=== PATIENT | female | born 1945 | race Caucasian/White ===

== ENCOUNTER 2023-02-07 12:29 | Observation (INO) | payer MEDICARE, SELFPAY ==
[2023-02-07] VITALS (12 sets, daily range): BP systolic 101–150; BP diastolic 54–88; PULSE 69–84; RESP 16–20; TEMP 36.6–36.9; O2SAT 89–99; BMI 29.2; BMI 30.2
--- NOTE | 2023-02-07 12:24 | ECG_ITS ---
APPROVED REPORT Exam: Resting ECG HR:85 bpm ECG Measurements Heart Rate 85 AXES NH 132 P 38 QRSd 88 QRS 20 QT 366 T 5 QTc 408 Conclusion SINUS RHYTHM NONSPECIFIC T-WAVE ABNORMALITY BORDERLINE ECG UNCONFIRMED REPORT Electronically signed by : Sin Gonsalez MD 02/07/2023 21:33:33
--- NOTE | 2023-02-07 12:41 | HMH.EDGIBL ---
Discharge Plan Disposition Patient Disposition: Admitted Condition: Fair Clinical Impressions Clinical Impression: GI bleed Discharge ED Provider: Kris Torres GI Bleed HPI General Chief complaint: GI Bleed Stated complaint: WEAKNESS Time Seen by Provider: 02/07/23 12:41 Mode of Arrival: Ambulatory Source of Information: Patient Limitations: No Limitations Description of Symptoms (Recalled from ER Triage Doc. by RN): 78 yo F presents to ED with c/o weakness, blood in stool, lower abdominal pain. symptoms ongoing since 01/31/23. pt states that approx 1 month ago her pcp prescribed her meloxicam, pt had been taking medication. pt states that monday she noticed blood in her stool, and abdominal cramping. pt stop taking the meloxicam when the bleeding started. History of Present Illness HPI Narrative: The patient reports rectal bleeding for the past 6 days. The patient reports that this started after she took diclofenac. Patient reports that it was initially bright red blood per rectum and subsequently dark tarry stool MD complaint: blood streaked stool and other (Black tarry stool) Onset (ago): day(s) (7) Consistency: constant Severity: moderate Relieving factors: none Exacerbating factors: none Associated symptoms: abdominal pain Related Data Home Medications Medication Instructions Recorded Confirmed acetaminophen 300 mg-codeine 30 mg 1 tab PO BIDP PRN Pain 02/07/23 02/07/23 tablet citalopram 20 mg tablet 10 mg PO DAILY Depression 02/07/23 02/07/23 hydrochlorothiazide 25 mg tablet 25 mg PO DAILY BLOOD PRESSURE/FLUID 02/07/23 02/07/23 Allergies Allergy/AdvReac Type Severity Reaction Status Date / Time ibuprofen AdvReac Verified 02/07/23 12:35 meloxicam AdvReac Verified 02/07/23 12:35 [facility] Disclaimer: The information contained in this section may have been updated after the patient was seen, as this information can be updated by other users. Medical History Anxiety Arthritis Surgical History Hx of section Social History Smoking Status: Current every day smoker alcohol intake: never substance use type: denies use current occupational status: employed Travel in the last 8 weeks: None ROS Obtained: Yes Systems reviewed as appropriate & no additional complaints except as documented Gastrointestinal Gastrointestingal: Reports abdominal pain, hematochezia and melena Physical Exam General General appearance: alert and in no apparent distress Eye Eye exam: Present normal appearance ENT ENT exam: Present normal external ear exam Respiratory Respiratory exam: Present normal lung sounds bilaterally Cardiovascular Cardiovascular exam: Present regular rate Abdominal Exam Abdominal exam: Present soft; Absent distention or tenderness Extremities Exam Extremities exam: Present normal inspection Neurological Exam Neurological exam: Present alert and oriented X3 Psychiatric Psychiatric exam: Present normal affect Medical Decision Making Mateo Inquiry Pt receiving controlled substance: No Vital Signs: 02/07/23 12:29 02/07/23 12:43 02/07/23 13:00 Temperature 97.9 F Temperature Source Oral Pulse Rate 84 75 Pulse Rate [Left] 82 Respiratory Rate 18 Blood Pressure 150/88 H 130/73 Blood Pressure [Right Arm] 128/80 Blood Pressure Mean 97 105 Blood Pressure Mean [Right Arm] 96 02 Sat by Pulse Oximetry 98 98 97 02/07/23 13:30 02/07/23 14:00 Temperature 98.0 F Temperature Source Pulse Rate 76 69 Pulse Rate [Left] Respiratory Rate 18 16 Blood Pressure 142/81 H 140/80 Blood Pressure [Right Arm] Blood Pressure Mean 101 Blood Pressure Mean [Right Arm] 02 Sat by Pulse Oximetry 95 Lab Data Lab results reviewed: Yes I reviewed the patient's lab results. Lab Results 02/07/23 12:35: Deidre
[2023-02-07 12:43] LABS: Occult Blood,Stool Positive (Negative)
[2023-02-07 12:51] LABS: Chloride 101 mmol/L (98-107); Potassium 3.9 mmoL/L (3.5-5.1); Sodium 138 mmol/L (136-145)
[2023-02-07 12:53] LABS: Blood Urea Nitrogen 32 mg/dl (7-17); Creatinine Clearance Estimated 54 mL/min (50-200); Estimated Glomerular Filt Rate 53 ml/min (>60); GFR (African American) 65 ML/MIN (>60)
[2023-02-07 12:54] LABS: Alanine Aminotransferase 40 U/L (12-78); Albumin Level 4.4 g/dl (3.5-5.0); Albumin/Globulin Ratio 1.4 (1.1-1.8); Alkaline Phosphatase 108 U/L (38-126); Anion Gap 18.9 mEq/L (5-15); Aspartate Amino Transferase 40 U/L (14-36); Bilirubin,Total 0.5 mg/dl (0.2-1.3); Calcium 9.4 mg/dl (8.4-10.2); Carbon Dioxide 22 mmol/L (22.0-30.0); Globulin 3.1 g/dL (1.3-3.2); Glucose 139 mg/dl (74-100); Total Protein,Serum 7.5 g/dl (6.3-8.2)
[2023-02-07 12:54] LABS: Coronavirus 19, PCR Not Detected (NotDetected); Influenza A, PCR Not Detected (NotDetected); Influenza B, PCR Not Detected (NotDetected)
[2023-02-07 12:57] LABS: Basophils # 0.1 K/mm3 (0-0.2); Basophils % 0.6 % (0.1-2.0); Eosinophils # 0.1 K/mm3 (0.0-0.4); Eosinophils % 0.9 % (0.1-12.0); Hematocrit 35.1 % (37.0-47.0); Hemoglobin 11.4 g/dL (12.2-16.2); Lymphocytes # 1.9 K/mm3 (0.7-4.5); Lymphocytes % 16.9 % (10-50); Mean Corpuscular HGB Conc 32.4 g/dL (31.8-35.4); Mean Corpuscular Hemoglobin 31.6 pg (27.0-31.2); Mean Corpuscular Volume 97.5 fl (81-99); Mean Platelet Volume 8.3 fl (7.4-10.4); Monocytes # 0.7 K/mm3 (0.1-1.0); Monocytes % 6.2 % (1.7-9.3); Neutrophils # 8.5 K/mm3 (1.8-7.8); Neutrophils % 75.4 % (37.0-80.0); Platelet Count 307 K/mm3 (142-424); Red Cell Distribution Width 13.2 % (11.5-17.5); White Blood Count 11.2 K/mm3 (4.8-10.8)
--- NOTE | 2023-02-07 13:34 | PC.NURSE ---
DR DIAZ PAGED AT THIS TIME
--- NOTE | 2023-02-07 13:40 | PC.NURSE ---
DR MARROQUIN SPEAKING WITH DR DIAZ
--- NOTE | 2023-02-07 13:44 | PC.NURSE ---
DR MARROQUIN SPEAKING WITH DR HOUSTON
--- NOTE | 2023-02-07 13:49 | PC.NURSE ---
DR MARROQUIN AT BEDSIDE TO UPDATE PT
--- NOTE | 2023-02-07 14:06 | PC.NURSE ---
report called to nataliia on second floor
--- NOTE | 2023-02-07 14:13 | EXP.ANES.CKL ---
[facility] Disclaimer: The information contained in this section may have been updated after the patient was seen, as this information can be updated by other users. Social History Smoking Status: Current every day smoker alcohol intake: never substance use type: denies use current occupational status: employed Travel in the last 8 weeks: None [facility] Anesthesia Checklist Patient Identification Patient Identification: Arm Band and Verbal (Name & ) Structural Data Admitted From: Emergency Dept Planned Operative Procedure/s: EGD Consent for Planned Operative Procedure(s) Verified: Yes NPO Status Verified Time NPO: 08:30 (Coffee) Chart Verification Results Verified: CBC Airway Assessment C-Spine Mobility Assessed: Yes TMJ Mobility Assessed: Yes Dentition: Good Dentition Neurological Assessment Level of Consciousness: Awake Hx Seizures: No Numbness or tingling in extremities: No Anesthesia Plan Anesthesia Risk discussed: Yes Anesthesia Plan: Verified ASA Class: II Anesthesia Type: MAC
--- NOTE | 2023-02-07 14:20 | EXP.SURG.CON ---
History of Present Illness *Admission Date: 02/07/23 *Reason for visit:: Gastrointestinal hemorrhage *History of present illness: This is a 78-year-old female who reports a 1 week history of dark stool and occasional bright red blood per rectum after starting meloxicam. Please see HPI from emergency department evaluation below. Forwarded from emergency department evaluation: Chief complaint: GI Bleed Stated complaint: WEAKNESS Time Seen by Provider: 02/07/23 12:41 Mode of Arrival: Ambulatory Source of Information: Patient Limitations: No Limitations Description of Symptoms (Recalled from ER Triage Doc. by RN): 78 yo F presents to ED with c/o weakness, blood in stool, lower abdominal pain. symptoms ongoing since 01/31/23. pt states that approx 1 month ago her pcp prescribed her meloxicam, pt had been taking medication. pt states that monday she noticed blood in her stool, and abdominal cramping. pt stop taking the meloxicam when the bleeding started. [facility] Disclaimer: The information contained in this section may have been updated after the patient was seen, as this information can be updated by other users. Social History (Updated 02/07/23 @ 14:14 by Vidya Parrish CRNA) Smoking Status: Current every day smoker alcohol intake: never substance use type: denies use current occupational status: employed Travel in the last 8 weeks: None Meds Home Medications and Allergies New Prescriptions to Start Prescriptions: Allergies Allergy/AdvReac Type Severity Reaction Status Date / Time ibuprofen AdvReac Verified 02/07/23 12:35 meloxicam AdvReac Verified 02/07/23 12:35 Exam (Inpt) Vital signs and Labs for Last 24 Hours: Temp Pulse Resp BP Pulse Ox 97.9 F 76 18 142/81 H 95 02/07/23 12:29 02/07/23 13:30 02/07/23 13:30 02/07/23 13:30 02/07/23 13:30 Laboratory Results - last 24 hr 02/07/23 12:35: Stool Occult Blood Positive A 02/07/23 12:35: WBC 11.2 H, RBC 3.60 L, Hgb 11.4 L, Hct 35.1 L, MCV 97.5, MCH 31.6 H, MCHC 32.4, RDW 13.2, Plt Count 307, MPV 8.3, Neut % (Auto) 75.4, Lymph % (Auto) 16.9, [place] % (Auto) 6.2, Eos % (Auto) 0.9, Baso % (Auto) 0.6, Neut # (Auto) 8.5 H, Lymph # (Auto) 1.9, [place] # (Auto) 0.7, Eos # (Auto) 0.1, Baso # (Auto) 0.1 02/07/23 12:35: Sodium 138, Potassium 3.9, Chloride 101, Carbon Dioxide 22, Anion Gap 18.9 H, BUN 32 H, Creatinine 1.00, Estimated Creat Clear 54, Estimated GFR 53 L, Est GFR ( Amer) 65, Glucose 139 H, Calcium 9.4, Total Bilirubin 0.5, AST 40 H, ALT 40, Alkaline Phosphatase 108, Total Protein 7.5, Albumin 4.4, Globulin 3.1, Albumin/Globulin Ratio 1.4 02/07/23 12:51: SARS-CoV-2 (PCR) Not detected, Influenza A Untype (PCR) Not detected, Influenza Type B (PCR) Not detected I & O for Labs for Last 24 Hours: Intake & Output 02/05/23 02/06/23 02/07/23 02/08/23 11:59 11:59 11:59 11:59 Weight 165 lb Constitutional: no acute distress Neck: Present full ROM Respiratory: Present normal respiratory effort; Absent respiratory distress Cardiac: Absent Tachycardia GI: Present soft Results Labs Result diagrams: 02/07/23 12:35 02/07/23 12:35 Labs: Laboratory Results - last 24 hr 02/07/23 12:35: Stool Occult Blood Positive A 02/07/23 12:35: WBC 11.2 H, RBC 3.60 L, Hgb 11.4 L, Hct 35.1 L, MCV 97.5, MCH 31.6 H, MCHC 32.4, RDW 13.2, Plt Count 307, MPV 8.3, Neut % (Auto) 75.4, Lymph % (Auto) 16.9, [place] % (Auto) 6.2, Eos % (Auto) 0.9, Baso % (Auto) 0.6, Neut # (Auto) 8.5 H, Lymph # (Auto) 1.9, [place] # (Auto) 0.7, Eos # (Auto) 0.1, Baso # (Auto) 0.1 02/07/23 12:35: Sodium 138, Potassium 3.9, Chloride 101, Carbon Dioxide 22, Anion Gap 18.9 H, BUN 32 H, Creatinine 1.00, Estimated Creat Clear 54, Estimated GFR 53 L, Est GFR ( Amer) 65, Glucose 139 H, Calcium 9.4, Total Bilirubin 0.5, AST 40 H, A
--- NOTE | 2023-02-07 14:47 | HMH.SCOPE ---
Procedure: Date: 02/07/23 Patient Date of :: 1945 Procedure Performed:: Esophagogastroduodenoscopy with biopsy Indications:: Gastrointestinal hemorrhage Performing Provider:: Anthony Acevedo MD Referring Provider:: . Sedation:: Monitored anesthesia care Procedure:: After informed consent was obtained the patient was taken to the endoscopy suite. Sedation ensued after the patient was transferred to the left lateral decubitus position. Pulse, blood pressure, and oxygen saturation were monitored throughout the procedure. The endoscope was advanced beyond the duodenal bulb. Retroflexion within the gastric lumen was accomplished. The gastroscope was carefully removed and the patient was transferred to recovery in stable condition. Please see findings and specimens below for detail. Findings:: Small/early scattered esophageal varices with no sign of active/recent hemorrhage Moderately large sliding hiatal hernia Early Schatzki ring with no evidence of definitive stricture No significant gastritis No obvious ulceration or Jayce lesion No evidence of active/recent hemorrhage Specimens:: Antral biopsy Recommendations:: Follow-up pathology Continued management as per primary service Complications:: No immediate Estimated blood obtained (mL): 1 Colonoscopy Component Colonoscopy Component Was a colonoscopy performed during today's procedure?: No
--- NOTE | 2023-02-07 15:08 | PC.NURSE ---
arrived to floor from surgery by robel
--- NOTE | 2023-02-07 16:21 | EXP.HP ---
History of Present Illness *Admission Date: 02/07/23 *History of present illness: Ms. Love is a pleasant 78-year-old female who reports 1 week of abdominal pain and dark stools. Initially began with bright red stool a week ago x1 day. Transition to dark stools thereafter. States she has been having tarry stools daily. Was started on meloxicam a month ago for arthritis, has had previous issues with meloxicam but decided to try and give it another go. Developed GI discomfort 2 weeks after starting. Denies shortness of breath, chest pain, nausea or vomiting. No bloody emesis. Stopped taking the meloxicam a week ago when the bleeding started. Has had abdominal cramping and gas. Denies any syncope. Work-up in the ER positive for mild anemia, hemoglobin however is close to her baseline. Surgery consulted for EGD. Stool occult positive. ER consulted for admission. After arrival to the floor, patient states that she still having discomfort. Is wanting to try p.o. intake however. Denies any chest pain or weakness. Stable on room air. [facility] Disclaimer: The information contained in this section may have been updated after the patient was seen, as this information can be updated by other users. Medical History Anxiety Arthritis Surgical History Hx of section Social History Smoking Status: Current every day smoker alcohol intake: never substance use type: denies use current occupational status: employed Travel in the last 8 weeks: None Meds Home Medications and Allergies Home Medications Medication Instructions Recorded Confirmed Type acetaminophen 300 mg-codeine 30 mg 1 tab PO BIDP PRN Pain 02/07/23 History tablet citalopram 20 mg tablet 10 mg PO DAILY Depression 02/07/23 History hydrochlorothiazide 25 mg tablet 25 mg PO DAILY BLOOD PRESSURE/FLUID 02/07/23 History New Prescriptions to Start Prescriptions: Allergies Allergy/AdvReac Type Severity Reaction Status Date / Time ibuprofen AdvReac Verified 02/07/23 12:35 meloxicam AdvReac Verified 02/07/23 12:35 Exam Data for Last 24 hours Vital signs and Labs for Last 24 Hours: Temp Pulse Resp BP Pulse Ox 97.8 F 75 18 135/68 97 02/07/23 15:21 02/07/23 15:21 02/07/23 15:21 02/07/23 15:21 02/07/23 15:21 Laboratory Results - last 24 hr 02/07/23 12:35: Stool Occult Blood Positive A 02/07/23 12:35: WBC 11.2 H, RBC 3.60 L, Hgb 11.4 L, Hct 35.1 L, MCV 97.5, MCH 31.6 H, MCHC 32.4, RDW 13.2, Plt Count 307, MPV 8.3, Neut % (Auto) 75.4, Lymph % (Auto) 16.9, [place] % (Auto) 6.2, Eos % (Auto) 0.9, Baso % (Auto) 0.6, Neut # (Auto) 8.5 H, Lymph # (Auto) 1.9, [place] # (Auto) 0.7, Eos # (Auto) 0.1, Baso # (Auto) 0.1 02/07/23 12:35: Sodium 138, Potassium 3.9, Chloride 101, Carbon Dioxide 22, Anion Gap 18.9 H, BUN 32 H, Creatinine 1.00, Estimated Creat Clear 54, Estimated GFR 53 L, Est GFR ( Amer) 65, Glucose 139 H, Calcium 9.4, Total Bilirubin 0.5, AST 40 H, ALT 40, Alkaline Phosphatase 108, Total Protein 7.5, Albumin 4.4, Globulin 3.1, Albumin/Globulin Ratio 1.4 02/07/23 12:51: SARS-CoV-2 (PCR) Not detected, Influenza A Untype (PCR) Not detected, Influenza Type B (PCR) Not detected I & O for Last 24 hours: Intake & Output 02/04/23 02/05/23 02/06/23 02/07/23 23:59 23:59 23:59 23:59 Weight 74.984 kg Constitutional Constitutional: no acute distress *Routine HEENT Exam Head: Present normocephalic Eye: Present EOMI and PERRL ENT: Present mucous membranes moist *Routine Neck Exam Neck: Present supple; Absent lymphadenopathy *Routine Respiratory Exam Respiratory: Present CTA bilaterally *Routine Cardiovascular Exam Cardiovascular: Present RRR *Routine Abdominal Exam Abdominal: Present soft, normoactive bowel sounds and tenderness (Minimal, nonfocal); Absent
[2023-02-07 23:08] LABS: Basophils % 0.4 % (0.1-2.0); Eosinophils # 0.1 K/mm3 (0.0-0.4); Eosinophils % 1.1 % (0.1-12.0); Hematocrit 30.6 % (37.0-47.0); Lymphocytes # 2.1 K/mm3 (0.7-4.5); Lymphocytes % 20.6 % (10-50); Mean Corpuscular HGB Conc 32.7 g/dL (31.8-35.4); Mean Corpuscular Hemoglobin 32.2 pg (27.0-31.2); Mean Corpuscular Volume 98.4 fl (81-99); Mean Platelet Volume 8.3 fl (7.4-10.4); Monocytes # 0.6 K/mm3 (0.1-1.0); Monocytes % 5.6 % (1.7-9.3); Neutrophils # 7.2 K/mm3 (1.8-7.8); Neutrophils % 72.3 % (37.0-80.0); Platelet Count 282 K/mm3 (142-424); Red Blood Count 3.11 M/mm3 (4.20-5.40); Red Cell Distribution Width 13.2 % (11.5-17.5); White Blood Count 9.9 K/mm3 (4.8-10.8)
[2023-02-08 04:00] VITALS: BP 122/64; PULSE 67; RESP 16; TEMP 36.8; O2SAT 93; BMI 30.4
[2023-02-08 05:43] LABS: Basophils % 0.4 % (0.1-2.0); Eosinophils # 0.2 K/mm3 (0.0-0.4); Eosinophils % 2.7 % (0.1-12.0); Hematocrit 29.4 % (37.0-47.0); Hemoglobin 9.7 g/dL (12.2-16.2); Lymphocytes # 2.1 K/mm3 (0.7-4.5); Lymphocytes % 23.8 % (10-50); Mean Corpuscular HGB Conc 32.9 g/dL (31.8-35.4); Mean Corpuscular Hemoglobin 31.9 pg (27.0-31.2); Mean Corpuscular Volume 96.9 fl (81-99); Mean Platelet Volume 8.8 fl (7.4-10.4); Monocytes # 0.6 K/mm3 (0.1-1.0); Monocytes % 6.6 % (1.7-9.3); Neutrophils # 5.7 K/mm3 (1.8-7.8); Neutrophils % 66.6 % (37.0-80.0); Platelet Count 268 K/mm3 (142-424); Red Blood Count 3.03 M/mm3 (4.20-5.40); Red Cell Distribution Width 13.2 % (11.5-17.5); White Blood Count 8.6 K/mm3 (4.8-10.8)
[2023-02-08 05:47] LABS: Chloride 104 mmol/L (98-107); Potassium 3.8 mmoL/L (3.5-5.1); Sodium 139 mmol/L (136-145)
[2023-02-08 05:49] LABS: Alanine Aminotransferase 27 U/L (12-78); Aspartate Amino Transferase 26 U/L (14-36); Bilirubin,Total 0.5 mg/dl (0.2-1.3); Blood Urea Nitrogen 28 mg/dl (7-17); Creatinine Clearance Estimated 54 mL/min (50-200); Estimated Glomerular Filt Rate 69 ml/min (>60); GFR (African American) 84 ML/MIN (>60)
[2023-02-08 05:50] LABS: Albumin Level 3.5 g/dl (3.5-5.0); Albumin/Globulin Ratio 1.3 (1.1-1.8); Alkaline Phosphatase 80 U/L (38-126); Anion Gap 14.8 mEq/L (5-15); Calcium 8.3 mg/dl (8.4-10.2); Carbon Dioxide 24 mmol/L (22.0-30.0); Globulin 2.7 g/dL (1.3-3.2); Glucose 120 mg/dl (74-100); Magnesium 1.4 mg/dl (1.6-2.3); Total Protein,Serum 6.2 g/dl (6.3-8.2)
--- NOTE | 2023-02-08 06:56 | EXP.SURG.PN ---
Subjective Narrative: The patient is currently resting. Per nursing, she had bright red blood and blood clot noted per rectum at the time of her last bowel movement. Seemingly, the volume was small . Exam Data for Last 24 hours Vital signs and Labs for Last 24 Hours: Temp Pulse Resp BP Pulse Ox 98.2 F 67 16 122/64 93 L 02/08/23 04:00 02/08/23 04:00 02/08/23 04:00 02/08/23 04:00 02/08/23 04:00 Laboratory Results - last 24 hr 02/07/23 12:35: Stool Occult Blood Positive A 02/07/23 12:35: WBC 11.2 H, RBC 3.60 L, Hgb 11.4 L, Hct 35.1 L, MCV 97.5, MCH 31.6 H, MCHC 32.4, RDW 13.2, Plt Count 307, MPV 8.3, Neut % (Auto) 75.4, Lymph % (Auto) 16.9, [place] % (Auto) 6.2, Eos % (Auto) 0.9, Baso % (Auto) 0.6, Neut # (Auto) 8.5 H, Lymph # (Auto) 1.9, [place] # (Auto) 0.7, Eos # (Auto) 0.1, Baso # (Auto) 0.1 02/07/23 12:35: Sodium 138, Potassium 3.9, Chloride 101, Carbon Dioxide 22, Anion Gap 18.9 H, BUN 32 H, Creatinine 1.00, Estimated Creat Clear 54, Estimated GFR 53 L, Est GFR ( Amer) 65, Glucose 139 H, Calcium 9.4, Total Bilirubin 0.5, AST 40 H, ALT 40, Alkaline Phosphatase 108, Total Protein 7.5, Albumin 4.4, Globulin 3.1, Albumin/Globulin Ratio 1.4 02/07/23 12:51: SARS-CoV-2 (PCR) Not detected, Influenza A Untype (PCR) Not detected, Influenza Type B (PCR) Not detected 02/07/23 23:00: WBC 9.9, RBC 3.11 L, Hgb 10.0 L D, Hct 30.6 L, MCV 98.4, MCH 32.2 H, MCHC 32.7, RDW 13.2, Plt Count 282, MPV 8.3, Neut % (Auto) 72.3, Lymph % (Auto) 20.6, [place] % (Auto) 5.6, Eos % (Auto) 1.1, Baso % (Auto) 0.4, Neut # (Auto) 7.2, Lymph # (Auto) 2.1, [place] # (Auto) 0.6, Eos # (Auto) 0.1, Baso # (Auto) 0.0 02/08/23 05:31: WBC 8.6, RBC 3.03 L, Hgb 9.7 L, Hct 29.4 L, MCV 96.9, MCH 31.9 H, MCHC 32.9, RDW 13.2, Plt Count 268, MPV 8.8, Neut % (Auto) 66.6, Lymph % (Auto) 23.8, [place] % (Auto) 6.6, Eos % (Auto) 2.7, Baso % (Auto) 0.4, Neut # (Auto) 5.7, Lymph # (Auto) 2.1, [place] # (Auto) 0.6, Eos # (Auto) 0.2, Baso # (Auto) 0.0 02/08/23 05:31: Sodium 139, Potassium 3.8, Chloride 104, Carbon Dioxide 24, Anion Gap 14.8, BUN 28 H, Creatinine 0.80, Estimated Creat Clear 54, Estimated GFR 69, Est GFR ( Amer) 84 D, Glucose 120 H, Calcium 8.3 L, Magnesium 1.4 L, Total Bilirubin 0.5, AST 26 D, ALT 27 D, Alkaline Phosphatase 80, Total Protein 6.2 L, Albumin 3.5 D, Globulin 2.7, Albumin/Globulin Ratio 1.3 I & O for Last 24 hours: Intake & Output 02/05/23 02/06/23 02/07/23 02/08/23 11:59 11:59 11:59 11:59 Intake Total 480 / 480 Output Total 0 / 0 Balance 480 / 480 Weight 165 lb 8 oz Constitutional Constitutional: no acute distress *Routine Respiratory Exam Respiratory: Absent respiratory distress *Routine Cardiovascular Exam Cardiovascular: Absent tachycardia Progress Note: A&P Assessment and plan (1) GI bleed: Status: Acute Assessment and plan: No definitive evidence of source noted per EGD yesterday. UGI/SBFT (possibly during this hospitalization to facilitate ongoing evaluation) Capsule endoscopy (outside facility) in the near future pending results of UGI/SBFT Discussion with regard to potential colonoscopy will be ongoing (note patient report of normal Cologuard recently ) (2) Anemia: Status: Chronic Assessment and plan: Hemoglobin 9.7 this a.m. (repeat ordered for 14:00)
--- NOTE | 2023-02-08 07:32 | HMH.PHAINT1 ---
Pharmacy Intervention Comments: PATIENT'S HOME MEDICATIONS VERIFIED WITH PATIENT AND EXTERNAL PHARMACY. -KAYY TIERNEY, PHARM STUDENT
[2023-02-08 07:43] VITALS: BP 108/63; PULSE 94; RESP 18; TEMP 36.5; O2SAT 95
--- NOTE | 2023-02-08 12:30 | EXP.DC.SUM ---
General Admission date:: 02/07/23 Discharge date: 02/08/23 HPI HPI HPI: Ms. Love is a pleasant 78-year-old female who reports 1 week of abdominal pain and dark stools. Initially began with bright red stool a week ago x1 day. Transition to dark stools thereafter. States she has been having tarry stools daily. Was started on meloxicam a month ago for arthritis, has had previous issues with meloxicam but decided to try and give it another go. Developed GI discomfort 2 weeks after starting. Denies shortness of breath, chest pain, nausea or vomiting. No bloody emesis. Stopped taking the meloxicam a week ago when the bleeding started. Has had abdominal cramping and gas. Denies any syncope. Work-up in the ER positive for mild anemia, hemoglobin however is close to her baseline. Surgery consulted for EGD. Stool occult positive. ER consulted for admission. After arrival to the floor, patient states that she still having discomfort. Is wanting to try p.o. intake however. Denies any chest pain or weakness. Stable on room air. Hospital Course Hospital Course Hospital Course: 78-year-old female with arthritis and anxiety who presents with 1 week of black tarry stools.? Previously on meloxicam.? Positive for occult stool on arrival to the ER.? ER consulted surgery, patient taken for EGD from the ER.? Consulted medicine for further management and observation.? Baseline hemoglobin approximately 12 per patient's report.? Hemoglobin 11.4 on admission.? Serial labs showed slight drop in hemoglobin however still above threshold for transfusion. 9.7 on morning of discharge. No further bloody stools morning of discharge. Patient's discomfort improving. Problems during hospitalization addressed as follows: GI bleed, secondary to NSAIDs Anemia -Baseline hemoglobin approximately 12 per her report.? 11.4 on admission, Hemoglobin dropped to 9.7-day of discharge. No overt bleeding noted. Surgery was consulted, patient was taken for EGD with minimal findings. No overt bleeding. No ulcers or significant erosions. Recommended continuing PPI. Transition to oral Protonix to continue twice daily for 1 week and then transition to once daily thereafter. Differential diagnosis includes gastritis, AVMs, diverticular bleed, or other intra-abdominal pathology. Patient clinically improving. Wants to continue further work-up as an outpatient. Stable at this time for discharge. Recommend colonoscopy in the coming weeks. Recommend repeat CBC in 1 week to monitor for stability. Transfusion threshold of hemoglobin of 7. Recommend avoiding NSAIDs in the future. Anxiety, continue home citalopram. Stable for discharge home. Recommend close follow-up. Spent 40 minutes in discharge counseling and direct care with patient. Exam Data for Last 24 hours Vital signs and Labs for Last 24 Hours: Temp Pulse Resp BP Pulse Ox 97.7 F 94 H 18 108/63 L 95 02/08/23 07:43 02/08/23 07:43 02/08/23 07:43 02/08/23 07:43 02/08/23 07:43 Laboratory Results - last 24 hr 02/07/23 12:35: Stool Occult Blood Positive A 02/07/23 12:35: WBC 11.2 H, RBC 3.60 L, Hgb 11.4 L, Hct 35.1 L, MCV 97.5, MCH 31.6 H, MCHC 32.4, RDW 13.2, Plt Count 307, MPV 8.3, Neut % (Auto) 75.4, Lymph % (Auto) 16.9, [place] % (Auto) 6.2, Eos % (Auto) 0.9, Baso % (Auto) 0.6, Neut # (Auto) 8.5 H, Lymph # (Auto) 1.9, [place] # (Auto) 0.7, Eos # (Auto) 0.1, Baso # (Auto) 0.1 02/07/23 12:35: Sodium 138, Potassium 3.9, Chloride 101, Carbon Dioxide 22, Anion Gap 18.9 H, BUN 32 H, Creatinine 1.00, Estimated Creat Clear 54, Estimated GFR 53 L, Est GFR ( Amer) 65, Glucose 139 H, Calcium 9.4, Total Bilirubin 0.5, AST 40 H, ALT 40, Alkaline Phosphatase 108, Total Protein 7.5, Albumin 4.4, Globulin 3.1, Albumin/Globulin Ratio 1.4 02/07/23 12:51: SARS-CoV-2 (PCR) Not detected, Influenza A Untype (PCR) Not detected, Influenza Type B (PCR) Not detected 02/07/23 23:00: WBC 9.9, RBC 3.11 L, Hgb 10.0 L D, Hct 30.6 L, MC
--- NOTE | 2023-02-10 12:11 | CARE MANAGER ---
Addendum entered by Rebeca Sousa RN 02/17/23 09:06: Patient returned our phone call and stated that she is doing fine. Had no complaints or concerns at time of call. Original Note: Attempted follow up call x2 left VM. RONALD Romero
== END 2023-02-08 12:51 | disposition home or self-care (01) ==
LOC: ER 13:29 → 2ND 13:57
PROVIDERS: Nurse Practitioner Critical Care Medicine; Surgery; Admitting Provider Internal Medicine Adolescent Medicine; Emergency Provider Emergency Medicine; PCP Family Medicine; Visit Provider Internal Medicine Adolescent Medicine
PROC: 0DJ08ZZ Inspection of Upper Intestinal Tract, Via Natural or Artificial Opening Endoscopic (ICD-10-PCS; CPT 43235; principal; 2023-02-07 14:00)
DX: K92.2 Gastrointestinal hemorrhage, unspecified (principal); I85.00 Esophageal varices without bleeding; F17.210 Nicotine dependence, cigarettes, uncomplicated; D64.9 Anemia, unspecified; T39.395A Adverse effect of other nonsteroidal anti-inflammatory drugs [NSAID], initial encounter; M19.90 Unspecified osteoarthritis, unspecified site; F41.9 Anxiety disorder, unspecified
CPT/HCPCS: 43239; G0378; 36415; 80053; 82272; 83735; 85025; 87635; 87636; 88305; 93005; 99285; C9803; G0328; U0003; U0005